=== PATIENT | male | born 1935 | race Caucasian/White ===

== ENCOUNTER 2021-04-02 11:20 | Outpatient (REF) | payer MEDICARE, SELFPAY ==
--- NOTE | ~2021-04-02 | US_ITS ---
EXAMINATION: US EXTRACRANIAL CAROTID DUPLEX, BILATERAL CLINICAL INFORMATION: Bilateral carotid artery stenosis. COMPARISON: 03/24/2020, 02/24/2019 TECHNIQUE: Real-time ultrasound and Doppler techniques (integrating B-mode 2-D vascular images, Doppler spectral analysis and color-flow Doppler imaging) were utilized to interrogate the extracranial carotid arteries, the vertebral arteries and proximal subclavian arteries bilaterally. The degree of stenosis is determined by criteria similar to NASCET. FINDINGS: Right Side: 1. There is mild atherosclerotic plaque seen in the bifurcation/proximal ICA region. 2. The common carotid artery PSV proximally is 118 cm/s and distally 78 cm/s. 3. The proximal internal carotid artery velocities are 84 cm/s systolic and 24 cm/s diastolic. 4. The proximal external carotid artery PSV is 90 cm/s. 5. The vertebral artery shows antegrade flow. 6. The subclavian artery waveforms are normal. Left Side: 1. There is moderate to severe atherosclerotic plaque seen in the bifurcation/proximal ICA region. 2. The common carotid artery PSV proximally is 109 cm/s and distally 84 cm/s. 3. The proximal internal carotid artery velocities are 201 cm/s systolic and 34 cm/s diastolic. 4. The proximal external carotid artery PSV is 123 cm/s. 5. The vertebral artery shows antegrade flow. 6. The subclavian artery waveforms are normal. US/US carotid duplex BI IMPRESSION: 1. RIGHT: Minimal, non-hemodynamically significant stenosis of the proximal right internal carotid artery corresponding to a 0-49% stenosis by velocity criteria. 2. LEFT: Moderate, hemodynamically significant stenosis of the proximal left internal carotid artery corresponding to a 50-79% stenosis by velocity criteria. 3. There is no change in the category severity of disease when compared to the previous study dated 03/24/2020.
== END 2021-04-02 11:21 | disposition home or self-care (01) ==
LOC: HO.US 11:20
PROVIDERS: Visit Provider Surgery Vascular Surgery
DX: I65.23 Occlusion and stenosis of bilateral carotid arteries (principal)
CPT/HCPCS: 93880

== ENCOUNTER → 2021-05-14 14:40 | Outpatient (BNVA) | payer MEDICARE, SELFPAY | PROVIDERS: PCP Family Medicine; Visit Provider Surgery Vascular Surgery | DX: I65.23 Occlusion and stenosis of bilateral carotid arteries (principal) | CPT/HCPCS: 99212 ==

== ENCOUNTER 2022-06-08 11:09 | Outpatient (REF) | payer MEDICARE, SELFPAY ==
--- NOTE | ~2022-06-08 | US_ITS ---
EXAMINATION: US EXTRACRANIAL CAROTID DUPLEX, BILATERAL CLINICAL INFORMATION: This is an 86-year-old male with occlusion and stenosis of bilateral carotid arteries. Status post right carotid in her rectum he. COMPARISON: Comparison is made to the previous study dated 04/02/2021 which demonstrated 0-49% right internal carotid artery stenosis and 50-79% left internal carotid artery stenosis. TECHNIQUE: Real-time ultrasound and Doppler techniques (integrating B-mode 2-D vascular images, Doppler spectral analysis and color-flow Doppler imaging) were utilized to interrogate the extracranial carotid arteries, the vertebral arteries and proximal subclavian arteries bilaterally. The degree of stenosis is determined by criteria similar to NASCET. FINDINGS: Right Side: 1. There is mild atherosclerotic plaque seen in the bifurcation/proximal ICA region. 2. The common carotid artery PSV proximally is 97 cm/s and distally 79 cm/s. 3. The proximal internal carotid artery velocities are 77 cm/s systolic and 22 cm/s diastolic. 4. The proximal external carotid artery PSV is 85 cm/s. 5. The vertebral artery shows antegrade flow. 6. The subclavian artery waveforms are normal. Left Side: 1. There is mild atherosclerotic plaque seen in the bifurcation/proximal ICA region. 2. The common carotid artery PSV proximally is 98 cm/s and distally 72 cm/s. 3. The proximal internal carotid artery velocities are 196 cm/s systolic and 43 cm/s diastolic. 4. The proximal external carotid artery PSV is 125 cm/s. 5. The vertebral artery shows antegrade flow. 6. The subclavian artery waveforms are normal. US/US carotid duplex BI IMPRESSION: 1. RIGHT: Minimal, non-hemodynamically significant stenosis of the proximal right internal carotid artery corresponding to a 0-49% stenosis by velocity criteria. 2. LEFT: Moderate, hemodynamically significant stenosis of the proximal left internal carotid artery corresponding to a 50-79% stenosis by velocity criteria. 3. There is no change in the category severity of disease when compared to the previous study dated 04/02/2021.
== END 2022-06-08 11:10 | disposition home or self-care (01) ==
LOC: HO.US 11:09
PROVIDERS: Visit Provider Surgery Vascular Surgery
DX: I65.23 Occlusion and stenosis of bilateral carotid arteries (principal)
CPT/HCPCS: 93880

== ENCOUNTER → 2022-06-21 08:49 | Outpatient (BNVA) | payer MEDICARE, SELFPAY | PROVIDERS: PCP Internal Medicine; Visit Provider Surgery Vascular Surgery | DX: I65.23 Occlusion and stenosis of bilateral carotid arteries (principal) | CPT/HCPCS: 99212 ==

== ENCOUNTER 2023-06-06 10:14 | Outpatient (REF) | payer MEDICARE, SELFPAY ==
--- NOTE | ~2023-06-06 | US_ITS ---
EXAMINATION: US EXTRACRANIAL CAROTID DUPLEX, BILATERAL CLINICAL INFORMATION: Carotid stenosis. History of right endarterectomy. COMPARISON: Yearly prior carotid ultrasounds most recently 06/08/2022. TECHNIQUE: Real-time ultrasound and Doppler techniques (integrating B-mode 2-D vascular images, Doppler spectral analysis and color-flow Doppler imaging) were utilized to interrogate the extracranial carotid arteries, the vertebral arteries and proximal subclavian arteries bilaterally. The degree of stenosis is determined by criteria similar to NASCET. FINDINGS: RIGHT SIDE: 1. There is mild atherosclerotic plaque seen in the bifurcation/proximal ICA region. 2. The common carotid artery PSV proximally is 112 cm/s and distally 107 cm/s. 3. The proximal internal carotid artery velocities are 57 cm/s systolic and 14 cm/s diastolic. 4. The proximal external carotid artery PSV is 154 cm/s. 5. The vertebral artery shows antegrade flow. 6. The subclavian artery waveforms are normal. LEFT SIDE: 1. There is mild atherosclerotic plaque seen in the bifurcation/proximal ICA region. 2. The common carotid artery PSV proximally is 100 cm/s and distally 79 cm/s. 3. The proximal internal carotid artery velocities are 149 cm/s systolic and 25 cm/s diastolic. 4. The proximal external carotid artery PSV is 118 cm/s. 5. The vertebral artery shows 79 flow. 6. The subclavian artery waveforms are 152. US/US carotid duplex BI IMPRESSION: 1. RIGHT: Minimal, nonhemodynamically significant stenosis of the proximal right internal carotid artery corresponding to a 0-49% stenosis by velocity criteria. 2. LEFT: A significant stenosis of the proximal left internal carotid artery corresponding to a 50-79% stenosis by velocity criteria. 3. Compared to the prior study, there has been no significant interval change in the category of disease severity.
== END 2023-06-06 10:15 | disposition home or self-care (01) ==
LOC: HO.US 10:14
PROVIDERS: PCP Internal Medicine; Visit Provider Surgery Vascular Surgery
DX: I65.23 Occlusion and stenosis of bilateral carotid arteries (principal)
CPT/HCPCS: 93880

== ENCOUNTER 2023-06-16 09:47 | Outpatient (AMB) | payer MEDICARE, SELFPAY ==
[2023-06-16 09:48] VITALS: BP 104/60; BMI 25.1
--- NOTE | 2023-06-16 09:48 | MHC.OFFVIS ---
Intake Vital Signs 06/16/23 09:48 06/16/23 09:57 Height 5 ft 10 in Weight 175 lb BMI 25.1 BP 104/60 104/60 Blood Pressure Location Lt brachial Rt brachial Position Sitting Sitting Intake Visit Reasons: 1 yr follow up carotid US 06/06/2023 Intake Note: 1 year follow up Carotid US 06/06/2023 w/ Hx of Right CEA 06/14/2017 ( at [facility]). Pt states no blurred vision or dizziness. No complaints. Chief Projectionist Required: Yes Chief Projectionist Language: Guyanese Chief Projectionist Name: Sherif () Information Interpreted: clinical only Accompanied by: Spouse Allergies No Known Allergies Allergy (Verified 06/16/23 09:55) HPI 1 yr follow up carotid US 06/06/2023 HPI Details Very pleasant 87-year-old gentleman presents for routine surveillance follow-up regarding his carotids. He had undergone right carotid endarterectomy nearly 6 years prior. He has been undergoing routine surveillance follow-up. He does remain somewhat active and does garden outside during the summertime. During the winter he has become a little bit more sedentary. In terms of his carotids he is asymptomatic. He now presents for routine surveillance follow-up with ultrasound. Of note he is being maintained on a statin. [facility] Medical History Hypercholesteremia HTN (hypertension) Surgical History History of CEA (carotid endarterectomy) Social History Patient Tobacco Use Status: Never used Tobacco Review of Systems Const All systems reviewed & are unremarkable except as noted in HPI and below Reports no additional complaints ENT Reports Normal hearing present Card Denies chest pain, Denies chest pain at rest, Denies chest pain with activity and Denies pedal edema Resp Denies cough GI Denies abdominal pain Musc Denies abnormal gait, Denies muscle cramps and Denies radiating pain into limb Skin/Breast Denies skin ulcer and Denies wounds Neuro Reports Normal hearing present and Denies abnormal gait Psych Reports no additional complaints Physical Exam Vital Signs: Last Vital Signs BP 104/60 06/16/23 09:57 BMI result Body Mass Index 25.1 Const General: cooperative, healthy appearing and comfortable Orientation/consciousness: oriented to person, oriented to place and oriented to time HEENT Head: Yes normal to inspection Neck Neck: Yes normal visual inspection Carotids: no bruits Chest Chest palpation & inspection: normal inspection of the chest Resp Effort & Inspection: normal respiratory effort and able to speak in complete sentences Auscultation: clear to auscultation bilaterally, no crackles, no rales, no rhonchi and no wheezes Cardio Rate: regular rate Rhythm: regular rhythm Heart sounds: S1 normal heart sound present and S2 normal heart sound present Bruits: no carotid bruits Peripheral pulses: Peripheral pulses 2+ throughout GI Inspection: Yes normal to inspection Skin Wounds: no wounds Hair: normal Neuro General: oriented to person, oriented to place and oriented to time Cranial nerves: Yes CN's II-XII intact bilaterally and Yes Normal hearing present Cognition (Neuro): normal cognition Motor exam (neuro): 5/5 motor strength present throughout Extrem Other: venous exam: No significant superficial varicosities or spider telangiectasias, minimal edema General: No clubbing, No cyanosis and No edema Psych Appearance: grossly normal Mental Status: mental status grossly normal Speech and movement: Normal speech and movement present Results Reviewed Results Reviewed: Carotid ultrasound dated 06/06/2023 demonstrates right-sided 0-49% left side 50-79% with a peak systolic velocity of only 149. There has been no significant change since the prior year. Written report and images were reviewed. Assessment & Plan Assessment & Plan (1) Bilateral carotid artery stenosis: Comment: 06/14/2017 - right carotid endarterectomy Code(s): I65.23 - Occlusion and stenosis of bilateral carotid arteries Plan: In short patient has asymptomatic carotid disease. We have reviewed signs and symptoms of a stroke. We also discussed risk factor modification inclusive a healthy diet low in cholesterol. The patient will follow up with us with surveillance ultrasound of the carotids 1 year. Should there be any changes or signs or symptoms of a stroke we will be happy to see them back sooner. Thank you for allowing us to participate in this patient's care. If there are any questions or concerns please do not hesitate to contact us. Orders: Orders US carotid duplex BI 364 Days I65.23 - Occlusion and stenosis of bilateral carotid arteries Coding Level of Care Code Est Pt Level 4 (14598) Diagnoses Bilateral carotid artery stenosis I65.23
[2023-06-16 09:57] VITALS: BP 104/60
== END 2023-06-16 10:16 | disposition home or self-care (01) ==
PROVIDERS: PCP Internal Medicine; Visit Provider Surgery Vascular Surgery
DX: I65.23 Occlusion and stenosis of bilateral carotid arteries (principal)
CPT/HCPCS: 99213

== ENCOUNTER → 2023-06-16 09:47 | Outpatient (BNVA) | payer MEDICARE, SELFPAY | PROVIDERS: PCP Internal Medicine; Visit Provider Surgery Vascular Surgery | DX: I65.23 Occlusion and stenosis of bilateral carotid arteries (principal) | CPT/HCPCS: 99212 ==

== ENCOUNTER 2024-06-14 09:45 | Outpatient (REF) | payer MEDICARE, SELFPAY ==
--- NOTE | ~2024-06-14 | US_ITS ---
EXAMINATION: US EXTRACRANIAL CAROTID DUPLEX, BILATERAL CLINICAL INFORMATION: Carotid stenosis, history of right carotid endarterectomy COMPARISON: 06/06/2023 TECHNIQUE: Real-time ultrasound and Doppler techniques (integrating B-mode 2-D vascular images, Doppler spectral analysis and color-flow Doppler imaging) were utilized to interrogate the extracranial carotid arteries, the vertebral arteries and proximal subclavian arteries bilaterally. The degree of stenosis is determined by criteria similar to NASCET. FINDINGS: Right Side: 1. Postsurgical changes consistent with carotid endarterectomy. There is no significant atherosclerotic plaque seen in the bifurcation/proximal ICA region. 2. The common carotid artery PSV proximally is 109 cm/s and distally 71 cm/s. 3. The proximal internal carotid artery velocities are 54.2 cm/s systolic and 10.8 cm/s diastolic. 4. The proximal external carotid artery PSV is 86 cm/s. 5. The vertebral artery shows antegrade flow. 6. The subclavian artery waveforms are normal. Left Side: Technically difficult with limited examination due to high bifurcation in the neck/submandibular region 1. Large amount of atheromatous plaque is seen in the distal common carotid artery and carotid bulb. Only a single vessel is is seen distal to this point suggesting underlying occlusion of either the internal carotid or external carotid artery. The degree of atheromatous plaque and occlusion of one of the vessels appears new compared to 2022. Velocity within the solitary vessel measures 123 cm/s 2. The vertebral artery shows antegrade flow. 6. The subclavian artery waveforms are normal. US/US carotid duplex BI IMPRESSION: 1. RIGHT: Status post carotid endarterectomy. No significant plaque/stenosis 2. LEFT: Extremely limited evaluation as described above. Large amount of atheromatous plaque now seen in the distal common carotid artery and carotid bulb with possible occlusion of either the extracranial carotid or internal carotid artery. This is new compared to the prior exam. Further evaluation with a CTA or MRA is recommended Electronically signed by: Donavan Esquivel MD 07/11/2024 02:21 PM [facility]
== END 2024-06-14 09:46 | disposition home or self-care (01) ==
LOC: HO.US 09:45
PROVIDERS: PCP Internal Medicine; Visit Provider Surgery Vascular Surgery
DX: I65.23 Occlusion and stenosis of bilateral carotid arteries (principal)
CPT/HCPCS: 93880

== ENCOUNTER 2024-06-21 09:56 | Outpatient (AMB) | payer MEDICARE, SELFPAY ==
--- NOTE | 2024-06-21 10:11 | MHC.OFFVIS ---
Intake Visit Reasons: 1 yr follow up carotid US 06/14/24 Intake Note: Patient presents for 1 year follow up carotid US performed on 06/14/24. No complaints. Allergies No Known Allergies Allergy (Verified 06/21/24 10:11) HPI HPI 1 yr follow up carotid US 06/14/24: Details: Very pleasant 88-year-old gentleman presents for routine surveillance regarding his carotids. He had undergone noninvasive testing. He remains somewhat active and does outside guarding during the summertime. He has become more sedentary. He had undergone right carotid endarterectomy with us nearly 7 years ago. He now presents for routine follow-up. [facility] Medical History Hypercholesteremia HTN (hypertension) Surgical History History of CEA (carotid endarterectomy) Social History Patient Tobacco Use Status: Never used Tobacco Review of Systems Const All systems reviewed & are unremarkable except as noted in HPI and below Reports no additional complaints ENT Reports Normal hearing present Card Denies chest pain, Denies chest pain at rest, Denies chest pain with activity and Denies pedal edema Resp Denies cough GI Denies abdominal pain Musc Denies abnormal gait, Denies muscle cramps and Denies radiating pain into limb Skin/Breast Denies skin ulcer and Denies wounds Neuro Reports Normal hearing present and Denies abnormal gait Psych Reports no additional complaints Physical Exam Const General: cooperative, healthy appearing and comfortable Orientation/consciousness: oriented to person, oriented to place and oriented to time HEENT Head: Yes normal to inspection Neck Neck: Yes normal visual inspection Carotids: no bruits Chest Chest palpation & inspection: normal inspection of the chest Resp Effort & Inspection: normal respiratory effort and able to speak in complete sentences Auscultation: clear to auscultation bilaterally, no crackles, no rales, no rhonchi and no wheezes Cardio Rate: regular rate Rhythm: regular rhythm Heart sounds: S1 normal heart sound present and S2 normal heart sound present Bruits: no carotid bruits Peripheral pulses: Peripheral pulses 2+ throughout GI Inspection: Yes normal to inspection Skin Wounds: no wounds Hair: normal Neuro General: oriented to person, oriented to place and oriented to time Cranial nerves: Yes CN's II-XII intact bilaterally and Yes Normal hearing present Cognition (Neuro): normal cognition Motor exam (neuro): 5/5 motor strength present throughout Extrem Other: venous exam: No significant superficial varicosities or spider telangiectasias, minimal edema General: No clubbing, No cyanosis and No edema Psych Appearance: grossly normal Mental Status: mental status grossly normal Speech and movement: Normal speech and movement present Results Reviewed Results Reviewed: On official reports demonstrate on the right side he has got 0-49% stenosis left side there was concern of high-grade stenosis at the distal common carotid artery. Was unable to get true velocity measurements in the internal carotid. Unfortunately I do not have an official read of this study done on 06/14/2024. Assessment & Plan Assessment & Plan (1) Bilateral carotid artery stenosis: Comment: 06/14/2017 - right carotid endarterectomy Code(s): I65.23 - Occlusion and stenosis of bilateral carotid arteries Category: Medical Plan: In short patient has stable right-sided carotid left side is in question. Unfortunately we do not have a clear study of this. I have taken the liberty of ordering a CT angiogram to better elucidate the true degree of stenosis. He will follow up with us after testing. Thank you for allowing us to assist in his care. If there are any questions or concerns please do not hesitate to contact us. Orders: Orders CT angio neck 1 Week I65.23 - Occlusion and stenosis of bilateral carotid arteries Blood Urea Nitrogen Today I65.23 - Occlusion and stenosis of bilateral carotid arteries Creatinine Today I65.23 - Occlusion and stenosis of bilateral carotid arteries Coding Level of Care Code Est Pt Level 4 (03659) Diagnoses Bilateral carotid artery stenosis I65.23
== END 2024-06-21 10:48 | disposition home or self-care (01) ==
PROVIDERS: PCP Internal Medicine; Visit Provider Surgery Vascular Surgery
DX: I65.23 Occlusion and stenosis of bilateral carotid arteries (principal)
CPT/HCPCS: 99214

== ENCOUNTER → 2024-06-21 09:56 | Outpatient (BNVA) | payer MEDICARE, SELFPAY | PROVIDERS: PCP Internal Medicine; Visit Provider Surgery Vascular Surgery | DX: I65.23 Occlusion and stenosis of bilateral carotid arteries (principal) | CPT/HCPCS: 99212 ==

== ENCOUNTER 2024-08-13 08:04 | Outpatient (REF) | payer MEDICARE, SELFPAY ==
--- NOTE | ~2024-08-13 | CT_ITS ---
CLINICAL HISTORY: I65.23 - Occlusion and stenosis of bilateral carotid arteries CT angiography neck with contrast. 3D Postprocessing. Comparison: CT/SR [place] [id number] - 01/16/18 08:25 EDT Findings: Three-vessel aortic arch and cervical great vessels are patent. There is calcified and noncalcified atheromatous plaquing at the left carotid bulb causing a 45% stenosis of the proximal left internal carotid artery. The right common and internal carotid artery are widely patent. Unremarkable bilateral ECA. Visualized intracranial arteries are patent. No aneurysm, dissection, or occlusion. Calcified atheromatous plaquing of the intracranial internal carotid arteries bilaterally without significant stenosis. The visualized thyroid gland is unremarkable. No cervical mass or fluid collection. Visualized intracranial structures demonstrate no acute findings. Intact orbits. Mild mucosal thickening in the bilateral maxillary sinus. Mastoid air cells are clear. Lung apices clear. No adenopathy. No acute fracture. Multilevel degenerative change of the cervical spine, predominantly uncovertebral and facet hypertrophy. No large disc osteophyte complex noted posteriorly. IMPRESSION: Calcified and noncalcified atheromatous plaquing causes 45 degree stenosis of the proximal left internal carotid artery per NASCET criteria. This appears increased compared with the prior study. This document has been electronically signed by: Keyla Castano MD on 08/14/2024 06:19:36
--- OUTSIDE RECORDS SUMMARY | 2024-08-13 08:08 | XMS_ITS | Clinical Summary ---
Author Organization [facility] Address [address] [place] [address] Phone Care Team Providers Care Vocational Rehabilitation Specialist Name Role Phone Frankie SWANN, Kirit Primary Care Provider [phone] [facility] [phone] Reason for Visit and Chief Complaint Medicare New Patient Plan of Treatment No Plan of Treatment Recorded Assessments Includes: Assessments from this encounter No Assessments Recorded Medical Equipment - Implanted Devices Includes: Current Devices No Medical Equipment Recorded Medications Administered Includes: Administered Medications from this encounter No Administered Medications Recorded Vital Signs Includes: Vital Signs from this encounter Vital Name 12/29/2023 09:27A Blood Pressure Sitting (mmHg) 192/85 Pulse Rate-Sitting (bpm) 80 Temp-Temporal 96.7 Height (in) 70 Weight (lb) 176 Body Mass Index 25.3 Body Surface Area 2 Oxygen Saturation (%) 96 Last Documented: On 12/29/2023 9:28AM ; [facility] Results Includes: Results discussed during this encounter No Results Recorded For Specified Dates History of Present Illness Includes: History of Present Illness from this encounter No History of Present Illness Recorded Social History No Social History Recorded - Smoking Status Unknown Medical History Includes: Medical History addressed during this encounter No Medical History Recorded Family History Includes: Family History addressed during this encounter No Family History Recorded Review of Systems Includes: Review of Systems from this encounter No Review of Systems Recorded Mental Status Includes: Mental Status from this encounter No Mental Status Recorded Functional Status Includes: Functional Status from this encounter No Functional Status Recorded Physical Exam Includes: Physical Exam from this encounter Encounters Encounter Provider Location Date Check-In Time Check-Out Time Diagnosis Medicare New Patient [facility] Lan [facility] 12/29/19 24 8:20AM 8:44AM Insurance Includes: Active Insurance Policies Plan Name Member ID Group # Subscriber Relationship Effect nuris Dates 1 - [facility] [id number] Ambrosio Townsend Self 2 - Medicare Part B [facility] [id number] Ambrosio Leung Clinical Notes Includes: Clinical Notes from this encounter * Progress note Date Encounter Last Documented by 12/29/2023 Medicare New Patient Last docume nted on 12/29/2023; 12:29 PM, Leon Lan MD; [facility], Chief Complaint Left great toe fracture laceration DOI: 12/27/2023 Nonoperative treatment HPI: 88-year-old male nondiabetic healthy active sustained above-stated injury to his left great toe with a sounds like a nailbed avulsion with a laceration. There is a fracture noted on the x-rays Patient evaluated [facility]. Underwent nailbed removal irrigation debridement suture laceration nailbed repair and application of Xeroform and a light dressing patient presents with daughter ambulating with a postop shoe Pain: Well-controlled Dressing removed Significant bleeding had been noted but seems to have ameliorated patient was on aspirin Local irrigation debridement was performed today dressing removed dressing cleaned No sign of infection Plan: Warm daily soaks Xeroform to nailbed Avoidance of any heavy impact activities Antibiotics: P.o. continue 7 to 10 days Follow-up postop day 10-14 for wound check Wound care discussed with daughter at length Radiographs reviewed at length.. We will be happy to see the patient back sooner rather than later if develops any signs of infection purulence drainage or cellulitis HILARIO Lan MD Physical Findings - Vitals taken 12/29/2023 09:27 am BP-Sitting 192/85 mmHg Pulse Rate-Sitting 80 bpm Temp-Temporal 96.7 F Height 70 in Weight 176 lbs Body Mass Index 25.3 kg/m2 Body Surface Area 2 m2 Oxygen Saturation 96 %
--- OUTSIDE RECORDS SUMMARY | 2024-08-13 08:08 | XMS_ITS ---
Care Plan - [facility] Created on: August 13, 2024 Ambrosio Townsend : 1935 Sex: Male Author Organization [facility] Address [address] [place] [phone] Phone Care Team Providers Care Machine Loader Name Role Phone Kirit David MD Primary Care Provider [phone] [facility] Unavailable [phone]
--- OUTSIDE RECORDS SUMMARY | 2024-08-13 08:08 | XMS_ITS | Clinical Summary ---
Author Organization [facility] Address [address] [place] [address] Phone Care Team Providers Care Funeral Director And Embalmer Name Role Phone Kirit David MD Primary Care Provider [phone] [facility] Unavailable [phone] Reason for Visit and Chief Complaint Established Patient Plan of Treatment Pending Tests Order Diagnosis Results Due Ordering P bolivar Follow Up - Appointment PRN Nondisp fx of dist phalanx of l great toe, init for opn fx 01/24/24 Jaleel Yadav PA-C Last Documented On 9:34AM ; [facility] [place] Assessments Includes: Assessments from this encounter No Assessments Recorded Medical Equipment - Implanted Devices Includes: Current Devices No Medical Equipment Recorded Medications Administered Includes: Administered Medications from this encounter No Administered Medications Recorded Vital Signs Includes: Vital Signs from this encounter Vital Name 01/24/2024 09:02A Blood Pressure Sitting (mmHg) 163/76 Pulse Rate-Sitting (bpm) 91 Temp-Temporal 97.1 Height (in) 70 Weight (lb) 170 Body Mass Index 24.4 Body Surface Area 1.9 Oxygen Saturation (%) 98 Last Documented: On 01/24/2024 9:03AM ; [facility] Results Includes: Results discussed during this encounter [...] Location Date Check-In Time Check-Out Time Diagnosis Established [facility]/24/[facility] 9:20AM 9:33AM Insurance Includes: Active Insurance Policies Plan Name Member ID Group # Subscriber Relationship Effect nuris Dates 1 - [facility] [id number] Ambrosio Leung 2 - Medicare Part B [facility] [id number] Ambrosio Leung Clinical Notes Includes: Clinical Notes from this encounter * Progress note Date Encounter Last Documented by 01/24/2024 Established Patient Last documekaiden colbert on 01/24/2024; 9:34 AM, Jaleel Yadav PA-C; [facility] Physical Findings - Vitals taken 01/24/2024 09:02 am BP-Sitting 163/76 mmHg Pulse Rate-Sitting 91 bpm Temp-Temporal 97.1 F Height 70 in Weight 170 lbs Body Mass Index 24.4 kg/m2 Body Surface Area 1.9 m2 Oxygen Saturation 98 % Plan StartCited - Nondisp fx of dist phalanx of l great toe, init for opn fx Follow Up/Appointment: PRN EndCited Notes REASON FOR VISIT Clinic follow-up for left great toe fracture and laceration DATE OF INJURY 12-27-23 DATE OF SURGERY N/A HISTORY OF PRESENT ILLNESS Patient is a pleasant 88-year-old male. On 12-27-23, patient sustained mechanical fall resulting in left great toe pain. Patient presented to [facility] ED. X-ray of the left foot demonstrated Widening of the interphalangeal joint of the great toe. Small bony fragments adjacent to the base of the distal phalanx. There is suggestion of a small fracture fragment at the lateral base of the distal phalanx. Overlying soft tissue irregularity and what appears to be an overlying soft tissue bandage. Patient's toenail was removed by ED staff and the laceration was closed. Patient was discharged with PO ABX. On 01-12-24, patient was seen most recently in the orthopedic clinic. At that time, he was instructed to continue with daily dressing changes with Xeroform and to continue with daily warm soaks with hydrogen peroxide. Patient was instructed to be weightbearing as tolerated with postop shoe. Today, patient states he is generally doing well. States that the pain in his left great toe has improved but is still sensitive where the nail is absent. Reports that he has been doing daily dressing changes and soaks as instructed. Denies numbness, paresthesias. Above information obtained from patient, patient's family if present, medical staff, and/or medical documentation. PHYSICAL EXAM General: Alert and cooperative, lying comfortably on exam, in no acute distress, accompanied by daughter Musculoskeletal: Left foot- great toe with medial laceration which appears to be healing well, scabbing appreciated over the area, toenail absent, no deformity/swelling/ecchymosis/erythema/drainage appreciated, area is nontender to light palpation, fires EHL/FHL, sensation intact about great toe, appears well-perfused IMAGING N/A ASSESSMENT Patient is 4 weeks s/p fall resulting in left great toe fracture and laceration. Patient is progressing well. PLAN - Weightbearing: As tolerated left lower extremity - Activity: As tolerated, being cautious of reinjury - Therapy: N/A - Dressing/DME: Patient may discontinue with hydrogen peroxide soaking and Xeroform dressing, may continue with dry/sterile dressing to provide padding to sensitive area of toe for comfort; patient may discontinue postop shoe and transition into supportive/comfortable shoe - Pain control: Elevate affected extremity; apply ice to affected area, 20 minutes on and 20 minutes off with a barrier between the ice and the skin; over the counter pain medication such as Tylenol or NSAID's as medically tolerated - Follow up: As needed - X-ray at follow up: N/A Patient seen with and above agreed to by Dr. Lan.
--- OUTSIDE RECORDS SUMMARY | 2024-08-13 08:08 | XMS_ITS | Clinical Summary ---
Author Organization [facility] Address [address] [place] [address] Phone Care Team Providers Care Snout Puller Name Role Phone Kirit David MD Primary Care Provider [phone] [facility] Unavailable [phone] Reason for Visit and Chief Complaint Established Patient Plan of Treatment Pending Tests Order Diagnosis Results Due Ordering P bolivar Follow Up - Appointment 2 Weeks Nondisp fx of dist phalanx of l great toe, init for opn fx 01/12/24 Yessi GEE Last Documented On 10:10AM ; [facility] Assessments Includes: Assessments from this encounter No Assessments Recorded Medical Equipment - Implanted Devices Includes: Current Devices No Medical Equipment Recorded Medications Administered Includes: Administered Medications from this encounter No Administered Medications Recorded Vital Signs Includes: Vital Signs from this encounter Vital Name 01/12/2024 09:36A Blood Pressure Sitting (mmHg) 142/69 Pulse Rate-Sitting (bpm) 70 Temp-Temporal 96.8 Height (in) 70 Weight (lb) 176 Body Mass Index 25.3 Body Surface Area 2 Oxygen Saturation (%) 96 Last Documented: On 01/12/2024 9:36AM ; [facility] Results Includes: Results discussed during this [...] Includes: Review of Systems from this encounter Chief complaint: Left great toe fracture laceration Date of injury: 12/27/2023 History of present illness: The patient is an 88-year-old Romanian speaking male who is being treated nonsurgically for an injury to his left great toe resulting in a nailbed avulsion with a laceration. Patient underwent nailbed removal, irrigation and debridement and suture laceration of the nailbed repair in the ER. He was last seen in the office on 12/02/2023 and at that visit was instructed to perform daily warm soaks, avoid heavy impact activities and continue p.o. antibiotics. He is seen today for routine follow-up and accompanied by his daughter who was able to translate. Patient reports completing antibiotics approximately 1 week ago. He continues to do daily warm soaks with hydrogen peroxide and dressing with Xeroform. Patient's daughter does the dressing change daily and lives approximately 20 minutes from the patient. Patient continues to wear a postop shoe. He reports mild left great toe pain to the touch. No other complaints at this time. Physical exam: Postop shoe already removed. Left great toe nail removed. Sutures in place over the distal great toe including over the nailbed. No erythema, drainage or malodor. No signs of infection. Mild tenderness palpation over the distal great toe. No pain with toe range of motion. Neurovascular intact. Diagnostic imaging: None obtained today Assessment: Patient is 2 weeks status post left great toe nailbed avulsion with a laceration. No signs of infection. Plan: Continue daily dressing changes with Xeroform. Continue daily warm soaks with hydrogen peroxide. Patient completed antibiotics approximately 1 week ago; no indication for antibiotics at this time. Weightbearing as tolerated left lower extremity in postop shoe. Rest, ice and elevate as needed. Follow-up in 2 weeks for wound check. No x-rays needed at that visit. Patient should call to be seen sooner if he develops signs of infection including but not limited to drainage, erythema, odor. Patient and his daughter understand and agree with the above-stated plan. Case discussed with Dr. Francis. Mental Status Includes: Mental Status from this encounter No Mental Status Recorded Functional Status Includes: Functional Status from this encounter No Functional Status Recorded Physical Exam Includes: Physical Exam from this encounter Encounters Encounter Provider Location Date Check-In Time Check-Out Time Diagnosis Established Patient Yessi CALVILLO [facility], 01/12/20 24 9:20AM 10:18AM Insurance Includes: Active Insurance Policies Plan Name Member ID Group # Subscriber Relationship Effect nuris Dates 1 - [facility] [id number] Ambrosio Leung 2 - Medicare Part B [facility] [id number] Ambrosio Leung Clinical Notes Includes: Clinical Notes from this encounter * Progress note Date Encounter Last Documented by 01/12/2024 Established Patient Last berlin colbert on 01/12/2024; 10:10 AM, Yessi GEE; [facility], Physical Findings - Vitals taken 01/12/2024 09:36 am BP-Sitting 142/69 mmHg Pulse Rate-Sitting 70 bpm Temp-Temporal 96.8 F Height 70 in Weight 176 lbs Body Mass Index 25.3 kg/m2 Body Surface Area 2 m2 Oxygen Saturation 96 % Plan StartCited - Nondisp fx of dist phalanx of l great toe, init for opn fx Follow Up/Appointment: 2 Weeks EndCited User Defined 4 Chief complaint: Left great toe fracture laceration Date of injury: 12/27/2023 History of present illness: The patient is an 88-year-old Romanian speaking male who is being treated nonsurgically for an injury to his left great toe resulting in a nailbed avulsion with a laceration. Patient underwent nailbed removal, irrigation and debridement and suture laceration of the nailbed repair in the ER. He was last seen in the office on 12/02/2023 and at that visit was instructed to perform daily warm soaks, avoid heavy impact activities and continue p.o. antibiotics. He is seen today for routine follow-up and accompanied by his daughter who was able to translate. Patient reports completing antibiotics approximately 1 week ago. He continues to do daily warm soaks with hydrogen peroxide and dressing with Xeroform. Patient's daughter does the dressing change daily and lives approximately 20 minutes from the patient. Patient continues to wear a postop shoe. He reports mild left great toe pain to the touch. No other complaints at this time. Physical exam: Postop shoe already removed. Left great toe nail removed. Sutures in place over the distal great toe including over the nailbed. No erythema, drainage or malodor. No signs of infection. Mild tenderness palpation over the distal great toe. No pain with toe range of motion. Neurovascular intact. Diagnostic imaging: None obtained today Assessment: Patient is 2 weeks status post left great toe nailbed avulsion with a laceration. No signs of infection. Plan: Continue daily dressing changes with Xeroform. Continue daily warm soaks with hydrogen peroxide. Patient completed antibiotics approximately 1 week ago; no indication for antibiotics at this time. Weightbearing as tolerated left lower extremity in postop shoe. Rest, ice and elevate as needed. Follow-up in 2 weeks for wound check. No x-rays needed at that visit. Patient should call to be seen sooner if he develops signs of infection including but not limited to drainage, erythema, odor. Patient and his daughter understand and agree with the above-stated plan. Case discussed with Dr. Francis.
[2024-08-13] MEDS: iohexoL 350 MG/ML 100 ML INFUS..BTL 70 ML IV (09:13)
[2024-08-14 07:52] LABS: Creatinine POC 1.1 mg/dL (0.5-1.4); GFR POC > 60
== END 2024-08-13 08:05 | disposition home or self-care (01) ==
LOC: HO.CT 08:04
PROVIDERS: PCP Internal Medicine; Visit Provider Surgery Vascular Surgery
DX: I65.23 Occlusion and stenosis of bilateral carotid arteries (principal)
CPT/HCPCS: 70498; 82565; Q9967

== ENCOUNTER → 2024-08-13 08:06 | Outpatient (BNV) | payer MEDICARE, SELFPAY | PROVIDERS: PCP Internal Medicine; Visit Provider Radiology Diagnostic Radiology | DX: I65.23 Occlusion and stenosis of bilateral carotid arteries (principal) | CPT/HCPCS: 70498 ==

== ENCOUNTER 2024-08-21 09:01 | Outpatient (AMB) | payer MEDICARE, SELFPAY ==
--- NOTE | 2024-08-21 09:05 | MHC.OFFVIS ---
Intake Visit Reasons: follow up s/p CT Scan 08/13/24 Intake Note: Patient presents for follow up CT Scan performed on 08/13/14. Accompanied by: Daughter Allergies No Known Allergies Allergy (Verified 08/21/24 09:05) [facility] HPI follow up s/p CT Scan 08/13/24: Details: Very pleasant 89-year-old gentleman presents for follow-up regarding carotid disease. He just turned 89 and I have known him for nearly 8 years after performing his right carotid endarterectomy. He appears to be doing relatively well. There was some concerning findings on his last ultrasound and he has undergone CT angiogram. He has had no interval issues in appears to be doing fairly well. He now presents for routine follow-up. [facility] Medical History Hypercholesteremia HTN (hypertension) Surgical History History of CEA (carotid endarterectomy) Social History Patient Tobacco Use Status: Never used Tobacco Review of Systems Const All systems reviewed & are unremarkable except as noted in HPI and below Reports no additional complaints ENT Reports Normal hearing present Card Denies chest pain, Denies chest pain at rest, Denies chest pain with activity and Denies pedal edema Resp Denies cough GI Denies abdominal pain Musc Denies abnormal gait, Denies muscle cramps and Denies radiating pain into limb Skin/Breast Denies skin ulcer and Denies wounds Neuro Reports Normal hearing present and Denies abnormal gait Psych Reports no additional complaints Physical Exam Const General: cooperative, healthy appearing and comfortable Orientation/consciousness: oriented to person, oriented to place and oriented to time HEENT Head: Yes normal to inspection Neck Neck: Yes normal visual inspection Carotids: no bruits Chest Chest palpation & inspection: normal inspection of the chest Resp Effort & Inspection: normal respiratory effort and able to speak in complete sentences Auscultation: clear to auscultation bilaterally, no crackles, no rales, no rhonchi and no wheezes Cardio Rate: regular rate Rhythm: regular rhythm Heart sounds: S1 normal heart sound present and S2 normal heart sound present Bruits: no carotid bruits Peripheral pulses: Peripheral pulses 2+ throughout GI Inspection: Yes normal to inspection Skin Wounds: no wounds Hair: normal Neuro General: oriented to person, oriented to place and oriented to time Cranial nerves: Yes CN's II-XII intact bilaterally and Yes Normal hearing present Cognition (Neuro): normal cognition Motor exam (neuro): 5/5 motor strength present throughout Extrem Other: venous exam: No significant superficial varicosities or spider telangiectasias, minimal edema General: No clubbing, No cyanosis and No edema Psych Appearance: grossly normal Mental Status: mental status grossly normal Speech and movement: Normal speech and movement present Results Reviewed Results Reviewed: CT angiogram dated 08/13/2024 demonstrates left carotid stenosis of 45%. Right carotid is clean. Assessment & Plan Assessment & Plan (1) Bilateral carotid artery stenosis: Comment: 06/14/2017 - right carotid endarterectomy Code(s): I65.23 - Occlusion and stenosis of bilateral carotid arteries Category: Medical Plan: In short patient has stable carotid disease. I had a very marilin discussion with the family at this point in his life with the amount of stenosis I do not think we would ever operate on him. He appears to be doing fairly well and spry for an 89-year-old gentleman. I do not think any further follow-up imaging or follow-up with me is required. He will be missed from our practice. I wish them the best and should our services be ever required in the future would be happy to take care of this very kind gentleman. Thank you for allowing us to assist in his care. If there are any questions or concerns please do not hesitate to contact us. Coding Level of Care Code Est Pt Level 4 (28275) Complex EM visit Add On G2211 Diagnoses Bilateral carotid artery stenosis I65.23
== END 2024-08-21 09:23 | disposition home or self-care (01) ==
PROVIDERS: PCP Internal Medicine; Visit Provider Surgery Vascular Surgery
DX: I65.23 Occlusion and stenosis of bilateral carotid arteries (principal)
CPT/HCPCS: 99214; G2211

== ENCOUNTER → 2024-08-21 09:01 | Outpatient (BNVA) | payer MEDICARE, SELFPAY | PROVIDERS: PCP Internal Medicine; Visit Provider Surgery Vascular Surgery | DX: I65.23 Occlusion and stenosis of bilateral carotid arteries (principal) | CPT/HCPCS: 99212 ==

== ENCOUNTER 2025-06-04 10:52 | Outpatient (AMB) | payer MEDICARE, SELFPAY ==
--- OUTSIDE RECORDS SUMMARY | 2025-05-31 08:00 | XMS_ITS | Encounter Summary ---
Author Organization [facility] Address [address] [place] [address] Care Team Providers Care Bevel Gear Generator Operator Name Role Phone Rodolfo Dumont MD Primary Care Provider [phone] Reason for Visit * Reason Comments Consult * Consultation (Routine) - Authorized Specialty Diagnoses / Procedures Referred By Contact Referred To Contact Oncology / Hematology and Oncology Diagnoses Vitamin B12 deficiency Rodolfo Dumont MD [address] [place] [address] Phone: tel: fax: Hayder Stephens MD [address] [place] [address] Phone: tel: fax: Referral ID Status Reason Start Date Expiration Date Visits Requested Visits Authorized [id number] Authorized Specialty Services Required 04/18/2025 04/18/2026 99 99 Encounter Details Date Type Department Care Team (Late st Contact Info) Description 05/31/2025 9:00 AM EDT Office Visit [facility] Hematology Oncology [address] [place] [phone] Hayder Stephens MD [address] [place] [address] B12 deficiency (Primary Dx); Anemia, unspecified type Social History Tobacco Use Types Packs/Day Years Used Date Smoking Tobacco: Never Smokeless Tobacco: Never Alcohol Use Standard Drinks/Week Comments Not Currently 0 (1 standard drink = 0.6 oz pur e alcohol) Sex and Gender Information Value Date Recorded Sex Assigned at Not on file Legal Sex Male 4:58 PM EST Gender Identity Not on file Sexual Orientation Not on file documented as of this encounter Last Filed Vital Signs Vital Sign Reading Time Taken Comments Blood Pressure 130/71 05/31/2025 8:56 AM EDT Pulse 72 05/31/2025 8:56 AM EDT Temperature 36.7 C (98 F) 05/31/2025 8:56 AM EDT Respiratory Rate - - Oxygen Saturation 98% 05/31/2025 8:56 AM EDT Inhaled Oxygen Concentration - - Weight 77.6 kg (171 lb) 05/31/2025 8:56 AM EDT Height 177.8 cm (5' 10 ) 05/31/2025 8:56 AM EDT Body Mass Index 24.54 05/31/2025 8:56 AM EDT documented in this encounter Progress Notes * Hayder Stephens MD - 05/31/2025 9:00 AM EDT Dear Rodolfo, Thank you very much for referring this patient for consultation. HPI: Patient is an 89-year-old Turkish speaking man (history and physical done with the help of interpretation), who has multiple medical problem, who found to have significantly low B12 level and mild to moderate normocytic anemia so patient referred to me for further hematological evaluation. Patient and his daughter denies any prior history of hematological issues or any significant family history of hematological disease ROS: GENERAL: No significant anorexia but some weight loss and moderate fatigue HEENT no headache no visual symptom NECK: No lumps, goiter, pain or significant neck swelling RESPIRATORY: No cough or shortness of breath CARDIOVASCULAR: No chest pain. GI: No significant abdominal discomfort, blood in stools or black stools MUSCULOSKELETAL: No new unusual aches and pain HEMATOLOGY/LYMPHOLOGY No prolonged bleeding, easy bruisability or swollen nodes Other Systems review is non contributory PAST MEDICAL HISTORY: Patient Active Problem List Diagnosis Date Noted Parkinson's disease without dyskinesia (CMS/HCC V24, CMS/HCC V28) 04/18/2025 Anemia 07/18/2024 Arteriosclerosis of carotid artery 07/18/2024 Enlarged prostate 07/18/2024 Hyperlipidemia 07/18/2024 Loss of hearing 07/18/2024 Primary hypertension 07/18/2024 Vitamin B12 deficiency (non anemic) 07/18/2024 Impaired glucose tolerance 11/10/2017 Stage III chronic kidney disease ([facility] V24, [facility] V28) 11/10/2017 Carotid atherosclerosis 07/04/2017 PAST SURGICAL HISTORY: Surgical History[1] SOCIAL HISTORY: Social History Tobacco Use Smoking status: Never Smokeless tobacco: Never Substance Use Topics Alcohol use: Not Currently FAMILY HISTORY: Family History[2] Family Status Relation Name Status Son Alive Brother Alive Brother Sister Alive Sister Father Mother Daughter Alive MGM MGF PGM PGF No partnership data on file MEDICATIONS: Current Medications[3] Current Allergies[4] PHYSICAL EXAM: Visit Vitals BP 130/71 (BP Location: Left arm, Patient Position: Sitting, BP Cuff Size: Adult) Pulse 72 Temp 36.7 ??C (98 ??F) (Temporal) Ht 1.778 m (70 ) Wt 77.6 kg (171 lb) SpO2 98% BMI 24.54 kg/m?? Smoking Status Never BSA 1.95 m?? ECOG 0-1 APPEARANCE: Alert and oriented in no acute distress EYES: nonicteric sclera pink conjunctiva ORAL CAVITY: No erythema or exudates NECK: Neck supple, no significant adenopathy, HEART: normal S1 and S2 LUNG: clear to auscultation bilaterally LYMPH NODES: No palpable superficial adenopathy ABDOMEN: soft, nontender and no organomegaly appreciated. EXTREMITIES: Trace edema of lower extremity LABS: Lab Results Component Value Date WBC 6.7 04/18/2025 HGB 11.1 (L) 04/18/2025 HCT 34.6 (L) 04/18/2025 MCV 84.8 04/18/2025 PLT 156 04/18/2025 B12 level only 169 BUN 28 and creatinine 1.47 ASSESSMENT 1. B12 deficiency 2. Anemia, unspecified type After reviewing history physical laboratory data, there is a possibility patient may have pernicious anemia but B12 malabsorption can be due to diet, medication etc. patient have normocytic anemia soI will rule out possibility of iron deficiency but his anemia can be also due to his renal insufficiency. I gave him reassurance, I told him I would like to review peripheral smear as well as check B12 level again because patient is taking B12 orally, I will also check methylmalonic acid, intrinsicfactor antibody as well as iron studies, I will see him back after his workup for any further intervention PLAN: Above labs today, return to office in 2 to 3 weeks for any further intervention Hayder Stephens MD cc: Rodolfo Dumont MD [1] Past Surgical History: Procedure Laterality Date CATARACT EXTRACTION PROCEDURE: HISTORICAL CATARACT REMOVAL OTHER SURGICAL HISTORY Right PROCEDURE: ---- OTHER ----; COMMENT: carotid endarterectomy [2] Family History Problem Relation Name Age of Onset Other (Other: Other) Son hx of seizures No Known Problems Brother step Diabetes Brother Other (Other: carotid atherosclerosis) Sister step Breast cancer Sister step Breast cancer Sister [3] Current Outpatient Medications: acetaminophen (TYLENOL 8 HOUR) 650 mg 8 hr tablet, Take 1 tablet (650 mg total) by mouth every 8 (eight) hours if needed for moderate pain., Disp: 90 tablet, Rfl: 0 aspirin 81 mg EC tablet, Take 1 tablet (81 mg total) by mouth 1 (one) time each day., Disp: , Rfl: cholecalciferol (VITAMIN D-3) 25 mcg (1,000 unit) capsule, Take 1 capsule (1,000 Units total) by mouth 1 (one) time each day., Disp: , Rfl: cyanocobalamin (Vitamin B-12) 1,000 mcg tablet, Take 1 tablet (1,000 mcg total) by mouth 1 (one) time each day., Disp: 30 each, Rfl: 11 metoprolol succinate (TOPROL-XL) 25 mg 24 hr tablet, TAKE 1 TABLET BY MOUTH 1 TIME EACH DAY., Disp:90 tablet, Rfl: 0 omega-3 acid ethyl esters (LOVAZA) 1 gram capsule, Take 1 capsule (1 g total) by mouth 1 (one) timeeach day., Disp: , Rfl: rosuvastatin (CRESTOR) 40 mg tablet, Take 1 tablet (40 mg total) by mouth 1 (one) time each day., Disp: 90 tablet, Rfl: 0 [4] No Known Allergies documented in this encounter Plan of Treatment Upcoming Encounters Date Type Department Care Team (Late st Contact Info) Description 06/18/2025 11:30 AM EST Office Visit [facility] Hematology Oncology [address] [place] [phone] Hayder Stephens MD [address] [place] [address] 10/17/2025 9:15 AM EDT Office Visit Internal Medicine - [facility] [address] [place] [phone] Rodolfo Dumont MD [address] [place] [address] 04/17/2026 1:00 PM EDT Office Visit Nephrology [facility] [address] [place] [address] Walter Bui MD [address] [phone] documented as of this encounter Results * Erythropoietin (05/31/2025 9:19 AM EDT) [facility] Erythropoietin 4.5 2.6 - 18.5 mIU/mL 06/03/2025 8:44 PM EST [facility] Comment: Test performed at [facility], [address] , [place] [address] Melanie Vargas MD, PhD - Head Machinist Blood Venous blood specimen / Unknown Venipuncture / Unknown 05/31/2025 9:19 AM EDT 05/31/2025 1:14 PM EDT us Hayder Stephens MD LAB BLOOD ORDERABLES Final R esult [facility] [address] [place] [address] * (ABNORMAL) Iron and TIBC (05/31/2025 9:19 AM EDT) [facility] Iron 34(L) 50 - 160 mcg/dL LAB CHEMISTRY METHOD 05/31/2025 2:45 PM EDT [facility] TIBC 274 250 - 450 mcg/dL LAB CHEMISTRY METHOD 05/31/2025 2:45 PM EDT [facility] Iron Saturation 12(L) 20 - 50 % LAB CHEMISTRY METHOD 05/31/2025 2:45 PM EDT [facility] Blood Venous blood specimen / Unknown Venipuncture / Unknown 05/31/2025 9:19 AM EDT 05/31/2025 1:14 PM EDT us Hayder Stephens MD LAB BLOOD ORDERABLES Final R esult Performing Organization Address City/[facility]/ZIP Co de Phone Number [facility] [address] [place] [address], [place] [phone] * Ferritin (05/31/2025 9:19 AM EDT) [facility] Ferritin 146 26 - 388 ng/mL LAB CHEMISTRY METHOD 05/31/2025 2:45 PM EDT [facility] Blood Venous blood specimen / Unknown Venipuncture / Unknown 05/31/2025 9:19 AM EDT 05/31/2025 1:14 PM EDT Hayder Stephens MD LAB BLOOD ORDERABLES Final R esult [facility] [address] [place] [address], [place] [phone] * Reticulocyte count (05/31/2025 9:19 AM EDT) Pathologist [facility] Retic Ct Abs 0.040 0.030 - 0.090 M/mcL LAB HEMETOLOGY METHOD 05/31/2025 1:41 PM EDT [facility] Retic Ct Pct 0.9 0.7 - 1.7 % LAB HEMETOLOGY METHOD 05/31/2025 1:41 PM EDT [facility] Immature Retic Fract 8.8 2.3 - 15.9 % LAB HEMETOLOGY METHOD 05/31/2025 1:41 PM EDT [facility] Reticulocyte Hemoglobin 30.9 >29.0 pcg LAB HEMETOLOGY METHOD 05/31/2025 1:41 PM EDT [facility] Blood Venous blood specimen / Unknown Venipuncture / Unknown 05/31/2025 9:19 AM EDT 05/31/2025 1:15 PM EDT Hayder Stephens MD LAB BLOOD ORDERABLES Final R esult Performing Organization Address City/[facility]/ZIP Co de Phone Number [facility] [address] [place] [address], [place] [phone] * Intrinsic factor blocking antibody (05/31/2025 9:19 AM EDT) Intrinsic Factor Blocking Antibody Negative Negative 06/03/2025 8:50 PM EST [facility] Comment: Positive in 50% of persons with pernicious anemia. Very high serum levels of vitamin B12 may give false positive results for intrinsic factor antibody. No sample should be collected from a patient who has received vitamin B12 injection therapy within the past week. Test performed at [facility], [address], [place] [address] Melanie Vargas MD, PhD - Head Machinist Blood Venous blood specimen / Unknown Venipuncture / Unknown 05/31/2025 9:19 AM EDT 05/31/2025 1:14 PM EDT us Hayder Stephens MD LAB BLOOD ORDERABLES Final R esult [facility] [address] [place] [address] * (ABNORMAL) Methylmalonic acid, serum (05/31/2025 9:19 AM EDT) Pathologist [facility] Methylmalonic Acid 0.41(H) <0.40 umol/L 06/04/2025 8:11 AM EST [facility] Comment: If applicable, any drug confirmation testing reported here was developed and the performance characteristics determined by [facility]. This confirmation testing has not been cleared or approved by the FDA. The laboratory is regulated under CLIA as qualified to perform high-complexity testing. This test is used for patient testing purposes. It should not be regarded as investigational or for research. Test performed at [facility], [address], [place] [address] Melanie Vargas MD, PhD - Head Machinist Blood Venous blood specimen / Unknown Venipuncture / Unknown 05/31/2025 9:19 AM EDT 05/31/2025 1:14 PM EDT Hayder Stephens MD LAB BLOOD ORDERABLES Final R esult [facility] [address] [place] [address] * (ABNORMAL) Vitamin B12 and folate (05/31/2025 9:19 AM EDT) Pathologist [facility] Vitamin B-12 500 250 - 900 pcg/mL LAB CHEMISTRY METHOD 05/31/2025 2:45 PM EDT [facility] Folate >20.0(H) 2.8 - 17.0 ng/ml LAB CHEMISTRY METHOD 05/31/2025 2:45 PM EDT [facility] Blood Venous blood specimen / Unknown Venipuncture / Unknown 05/31/2025 9:19 AM EDT 05/31/2025 1:14 PM EDT us Hayder Stephens MD LAB BLOOD ORDERABLES Final R esult [facility] [address] [place] [address], [place] [phone] documented in this encounter Visit Diagnoses Diagnosis B12 deficiency- Primary Anemia, unspecified type documented in this encounter Orders Outpatient Referral Count Last Ordered Date Fir st Ordered Date AMB REFERRAL TO HEMATOLOGY 1 05/31/2025 documented in this encounter Care Teams Bevel Gear Generator Operator Relationship Specialty Start Date End Date Rodolfo Dumont MD [address] [place] [id number] PCP - General Internal Medicine 06/26/19 documented as of this encounter
--- OUTSIDE RECORDS SUMMARY | 2025-05-31 08:30 | XMS_ITS | Encounter Summary ---
Author Organization [facility] Address [address] [place] [address] Care Team Providers Care Activity Leader Name Role Phone Rodolfo Dumont MD Primary Care Provider [phone] Encounter Details Date Type Department Care Team (Late Contact Info) Description 05/31/2025 9:30 AM EDT Lab Draw Station - [address] [phone] B12 deficiency; Anemia, unspecified type Social History Tobacco Use [...] on file documented as of this encounter Plan of Treatment Upcoming Encounters Date Type Department Care Team (Late st Contact Info) Description 06/18/2025 11:30 AM EST Office Visit [facility] Hematology Oncology [address] [place] [phone] Hayder Stephens MD [address] [place] [address] 10/17/2025 9:15 AM EDT Office Visit Internal Medicine - [address] [phone] Rodolfo Dumont MD [address] [place] [address] 04/17/2026 1:00 PM EDT Office Visit Nephrology - [place] [address] [place] [phone] Walter Bui MD [address] [phone] documented as of this encounter Procedures Procedure Name Priority Date/Time Associated Diagnosis Comments VITAMIN B12 AND FOLATE Routine 9:19 AM EDT B12 deficiency Anemia, unspecified type CBC WITH AUTO DIFFERENTIAL Routine 05/31/2025 9:19 AM EDT B12 deficiency Anemia, unspecified type ERYTHROPOIETIN Routine 05/31/2025 9:19 AM EDT B12 deficiency Anemia, unspecified type INTRINSIC FACTOR BLOCKING ANTIBODY Routine 05/31/2025 9:19 AM EDT B12 deficiency Anemia, unspecified type METHYLMALONIC ACID, SERUM Routine 05/31/2025 9:19 AM EDT B12 deficiency Anemia, unspecified type IRON AND TIBC Routine 05/31/2025 9:19 AM EDT B12 deficiency Anemia, unspecified type RETICULOCYTE COUNT Routine 05/31/2025 9: 19 AM EDT B12 deficiency Anemia, unspecified type CBC AND DIFFERENTIAL Routine 05/31/2025 9:19 AM EDT B12 deficiency Anemia, unspecified type FERRITIN Routine 05/31/2025 9:19 AM EDT B12 deficiency Anemia, unspecified type documented in this encounter Results * (ABNORMAL) CBC auto differential (05/31/2025 9:19 AM EDT) WBC 6.2 4.8 - 10.8 K/mcL LAB HEMETOLOGY METHOD 05/31/2025 1:[address] [facility] RBC 4.10(L) 4.50 - 5.50 M/mcL LAB HEMETOLOGY METHOD 05/31/2025 1:[address] [facility] Hemoglobin 11.1(L) 13.5 - 17.5 g/dL LAB HEMETOLOGY METHOD 05/31/2025 1:[address] [facility] Hematocrit 35.4(L) 42.0 - 54.0 % LAB HEMETOLOGY METHOD 05/31/2025 1:[address] [facility] MCV 87.4 79.0 - 98.0 FL LAB HEMETOLOGY METHOD 05/31/2025 1:[address] [facility] MCH 27.4 27.0 - 32.0 pcg LAB HEMETOLOGY METHOD 05/31/2025 1:[address] [facility] MCHC 31.4(L) 32.0 - 37.0 g/dL LAB HEMETOLOGY METHOD 05/31/2025 1:[address] [facility] RDW 15.2(H) 11.0 - 15.0 % LAB HEMETOLOGY METHOD 05/31/2025 1:[address] [facility] Platelets 130 130 - 400 K/mcL LAB HEMETOLOGY METHOD 05/31/2025 1:[address] [facility] MPV 10.5 7.0 - 11.0 FL LAB HEMETOLOGY METHOD 05/31/2025 1:[address] [facility] NRBC 0.0 <1.0 % LAB HEMETOLOGY METHOD 05/31/2025 1:[address] [facility] NRBC Absolute 0.00 <0.10 K/mcL LAB HEMETOLOGY METHOD 05/31/2025 1:[address] [facility] Neutrophils Relative 50.5 % LAB HEMETOLOGY METHOD 05/31/2025 1:[address] [facility] Lymphocytes Relative 30.9 % LAB HEMETOLOGY METHOD 05/31/2025 1:[address] [facility] Monocytes Relative 15.8 % LAB HEMETOLOGY METHOD 05/31/2025 1:[address] [facility] Eosinophils Relative 2.4 % LAB HEMETOLOGY METHOD 05/31/2025 1:[address] [facility] Basophils Relative 0.2 % LAB HEMETOLOGY METHOD 05/31/2025 1:[address] [facility] Immature Granulocytes Relative 0.2 % LAB HEMETOLOGY METHOD 05/31/2025 1:[address] [facility] Neutrophils Absolute 3.11 1.50 - 7.00 K/mcL LAB HEMETOLOGY METHOD 05/31/2025 1:[address] [facility] Lymphocytes Absolute 1.90 1.00 - 5.00 K/mcL LAB HEMETOLOGY METHOD 05/31/2025 1:[address] [facility] Monocytes Absolute 0.97 0.20 - 1.00 K/mcL LAB HEMETOLOGY METHOD 05/31/2025 1:[address] [facility] Eosinophils Absolute 0.15 0.00 - 0.50 K/mcL LAB HEMETOLOGY METHOD 05/31/2025 1:[address] [facility] Basophils Absolute 0.01 0.00 - 0.20 K/mcL LAB HEMETOLOGY METHOD 05/31/2025 1:[address] [facility] Immature Granulocytes Absolute 0.01 0.00 - 0.03 K/mcL LAB HEMETOLOGY METHOD 05/31/2025 1:[address] [facility] Blood Venous blood specimen / Unknown Venipuncture / Unknown 05/31/2025 9:19 AM EDT 05/31/2025 1:15 PM EDT Hayder Stephens MD LAB BLOOD ORDERABLES Final R esult [facility] [address] [place] [address], [place] [phone] * Erythropoietin (05/31/2025 9:19 AM EDT) Erythropoietin 4.5 2.6 - 18.5 mIU/mL 06/03/2025 8:44 PM EST [facility] Comment: Test performed at [facility], [address], [place] [address] Melanie Vargas MD, PhD - Hogshead Stock Clerk Blood Venous blood specimen / Unknown Venipuncture / Unknown 05/31/2025 9:19 AM EDT 05/31/2025 1:14 PM EDT Hayder Stephens MD LAB BLOOD ORDERABLES Final R esult [facility] [address] [place] [address] * (ABNORMAL) Iron and TIBC (05/31/2025 9:19 AM EDT) Iron 34(L) 50 - 160 mcg/dL LAB CHEMISTRY METHOD 05/31/2025 2:45 PM EDT [facility] TIBC 274 250 - 450 mcg/dL LAB CHEMISTRY METHOD 05/31/2025 2:45 PM EDT [facility] Iron Saturation 12(L) 20 - 50 % LAB CHEMISTRY METHOD 05/31/2025 2:45 PM EDT [facility] Blood Venous blood specimen / Unknown Venipuncture / Unknown 05/31/2025 9:19 AM EDT 05/31/2025 1:14 PM EDT us Hayder Stephens MD LAB BLOOD ORDERABLES Final R esult [facility] [address] [place] [address], [place] [phone] * Ferritin (05/31/2025 9:19 AM EDT) Ferritin 146 26 - 388 ng/mL LAB CHEMISTRY METHOD 05/31/2025 2:45 PM EDT [facility] Blood Venous blood specimen / Unknown Venipuncture / Unknown 05/31/2025 9:19 AM EDT 05/31/2025 1:14 PM EDT Hayder Stephens MD LAB BLOOD ORDERABLES Final R esult Performing Organization Address City/[facility]/ZIP Co de Phone Number [facility] [address] [place] [address], [place] [phone] * Reticulocyte count (05/31/2025 9:19 AM EDT) Retic Ct Abs 0.040 0.030 - 0.090 M/mcL LAB HEMETOLOGY METHOD 05/31/2025 1:41 PM EDT [facility] Retic Ct Pct 0.9 0.7 - 1.7 % LAB HEMETOLOGY METHOD 05/31/2025 1:41 PM EDT [facility] Immature Retic Fract 8.8 2.3 - 15.9 % LAB HEMETOLOGY METHOD 05/31/2025 1:41 PM EDT [facility] Reticulocyte Hemoglobin 30.9 >29.0 pcg LAB HEMETOLOGY METHOD 05/31/2025 1:41 PM EDT [facility] Blood Venous blood specimen / Unknown Venipuncture / Unknown 05/31/2025 9:19 AM EDT 05/31/2025 1:15 PM EDT Hayder Stephens MD LAB BLOOD ORDERABLES Final R esult [facility] [address] [place] [address], * Intrinsic factor blocking antibody (05/31/2025 9:19 [...] within the past week. Test performed at [facility], [address] [address], [place] [address] Melanie Vargas MD, PhD - Hogshead Stock Clerk Blood Venous blood specimen / Unknown Venipuncture / Unknown 05/31/2025 9:19 AM EDT 05/31/2025 1:14 PM EDT Hayder Stephens MD LAB BLOOD ORDERABLES Final R esult [facility] [address] [place] [address] * (ABNORMAL) Methylmalonic acid, serum (05/31/2025 9:19 AM EDT) Methylmalonic Acid 0.41(H) <0.40 umol/L 06/04/2025 8:11 AM EST [facility] Comment: If applicable, any drug confirmation testing reported here was developed and the performance characteristics determined by [facility]. This confirmation testing has not been cleared or approved by the FDA. The laboratory is regulated under CLIA as qualified to perform high-complexity testing. This test is used for patient testing purposes. It should not be regarded as investigational or for research. Test performed at [facility], [address], [place] [address] Melanie Vargas MD, PhD - Hogshead Stock Clerk Blood Venous blood specimen / Unknown Venipuncture / Unknown 05/31/2025 9:19 AM EDT 05/31/2025 1:14 PM EDT Hayder Stephens MD LAB BLOOD ORDERABLES Final R esult [facility] [address] [place] [address] * (ABNORMAL) Vitamin B12 and folate (05/31/2025 9:19 AM EDT) Pathologist [facility] Vitamin B-12 500 250 - 900 pcg/mL LAB CHEMISTRY METHOD 05/31/2025 2:45 PM EDT [facility] Folate >20.0(H) 2.8 - 17.0 ng/ml LAB CHEMISTRY METHOD 05/31/2025 2:45 PM EDT [facility] Blood Venous blood specimen / Unknown Venipuncture / Unknown 05/31/2025 9:19 AM EDT 05/31/2025 1:14 PM EDT Hayder Stephens MD LAB BLOOD ORDERABLES Final R esult [facility] [address] [place] [address], documented in this encounter Visit Diagnoses Diagnosis B12 deficiency Anemia, unspecified type documented in this encounter Care Teams Activity Leader Relationship Specialty Start Date End Date Rodolfo Dumont MD [address] [place] [id number] PCP - General Internal Medicine 06/26/19 documented as of this encounter
--- NOTE | 2025-06-04 10:54 | A.OFFVIS_ITS ---
Intake Visit Reasons: 6 months f/u Allergies No Known Allergies Allergy (Verified 08/21/24 09:05) HPI Comments Details: This is a 89-year-old [place] speaking man who is here with his daughter,?a nurse, who?acted as an yard driver.? He himself feels fine and doesn't think that he has any problem with his mobility.? He acknowledges slight intermittent tremor in his right hand which does not cause any functional impairment.? Other than that, he feels he has no problems getting dressed, eating, walking or with his memory.? His daughter reports that the family has noted?very mild intermittent resting tremor in the right hand, mostly involving the thumb, index finger and the wrist??since April of 2024.? It was also noted that he doesn't swing his arms as well when?he walks. At home,? he shuffles a bit in his walking, but when he comes to the doctor's office he makes a conscious effort to overcome it.? He has become somewhat slower in doing things. His facial expression is blank at times. ?He's had no falls.? He has no significant memory impairment other than what would be expected for his age.? He takes a couple of attempts to get out of a?chair.? He has no trouble turning in bed.? No drooling or dysphagia.? His speech has not changed.? He had a few physical therapy evaluations and was given exercises which he does not do. ?Most of the day he is sitting in his chair and does not like to go for a walk. [facility] Medical History (Updated 06/04/25 @ 11:22 by Dwayne Hogan MD) Parkinson disease Hypercholesteremia HTN (hypertension) Surgical History History of CEA (carotid endarterectomy) Social History Patient Tobacco Use Status: Never used Tobacco Review of Systems Const Details: ?Sleep:? Difficulty getting to sleepdenies.? Difficulty maintaining sleepdenies?.? Urge to move legsdenies.? Teeth grindingadmits.? Shouting or Kicking during sleep denies.? Abnormal behavior during sleepdenies.? Excessive sleepdenies.? Snoring admits.? Daytime sleepinessdenies. ???General/Constitutional:? Change in appetitedenies.? Chillsdenies.? Fatiguedenies.? Feverdenies.? Weight gaindenies.? Weight lossdenies. ???Ophthalmologic:? Blurred visiondenies.? Diminished visual acuitydenies. ???ENT:? Stuffinessdenies.? Decreased hearingdenies.? Dry mouthdenies.? Ear paindenies.? Nosebleeddenies.? Ringing in the earsdenies.? Sinus paindenies.? Sore throat denies.? Swollen glandsdenies. ???Endocrine:? Cold intolerancedenies.? Excessive thirstdenies.? Frequent urinationdenies.? Heat intolerancedenies. ???Respiratory:? Shortness of breathdenies.? Chest paindenies.? Coughdenies. ???Breast:? Breast lumpdenies.? Nipple dischargedenies. ???Cardiovascular:? Chest pain at restdenies.? Chest pain with exertiondenies.? Claudicationdenies .? Dizzinessdenies.? Fluid accumulation in the legsdenies.? Irregular heartbeat denies.? Palpitationsdenies. ???Gastrointestinal:? Abdominal paindenies.? Constipationdenies.? Diarrheadenies.? Difficulty swallowingdenies.? Heartburndenies.? Nauseadenies.? Rectal bleedingdenies. ???Hematology:? Easy bruisingdenies.? Prolonged bleedingdenies. ???Genitourinary:? Frequent urinationadmits.? Urgencydenies.? Incontinencedenies.? Erectile Dysfunctiondenies. ???Musculoskeletal:? Neck paindenies.? Back paindenies.? Muscle achesdenies.? Painful jointsdenies.? Sciaticadenies.? Weaknessdenies. ???Podiatric:? Difficulty walkingdenies.? Foot numbnessdenies. ???Neurologic:? Difficulty swallowingdenies.? Balance difficultydenies.? Coordinationnormal.? Difficulty speakingdenies.? Dizzinessdenies.? Faintingdenies.? Gait abnormality admits,?shuffling.? Headachedenies.? Loss of strengthdenies.? Loss of use of extremitydenies.? Low back paindenies.? Memory lossadmits.? Seizuresdenies.? Ticsdenies.? Tingling/Numbnessdenies.? Transient loss of visiondenies.? Tremor mild intermittent right hand tremor. ???Psychiatric:? Anxietydenies.? Auditory/visual hallucinationsdenies.? Delusionsdenies.? Depressed mooddenies.? Stressorsdenies.? Substance abusedenies.? Suicidal thoughtsdenies. Physical Exam Neuro Other: Neurological: Abnormal neurological findings:??mild reduction in facial expression with reduced blink frequency.? Very slightly forward stooped posture.? Very mild 4-6 Hz low to medium amplitude resting tremor, mostly affecting the right thumb and index finger and slightly at the wrist.? Minimal increase in tone in the right upper extremity.? Very slight decrease in arm swing on walking.? He did not exhibit a shuffling gait today in the office..?Mental Status:??alert and oriented X 3,?Normal attention, orientation, memory and affect.?Cranial Nerves :??Pupils are equal, round and reactive to light. Fundoscopy shows normal disc bilaterally. External occular muscles are intact. Visual schwartz are full, no ptosis. Face is symmetrical, no facial weakness or droop. Facial sensations are normal. Tongue protrudes in midline. Palate elevates symmetrically. Shoulder shrugging is normal..?Motor Examination:??as above, otherwise normal muscle tone, bulk and strength,?No atrophy or fasciculations,?No drift of the extended upper extremities,?Deep tendon reflexes are 2+?,?Plantars are flexor?.?Motor Strength:?Proximal Muscles (out of 5):5Distal Muscles (out of 5):5Neck Flexors (out of 5):5Neck Extensors (out of 5):5Deltoid (out of 5):5Biceps (out of 5):5 Triceps (out of 5):5Serratus Anterior (out of 5):5Wrist Extensors (out of 5):5 APB (out of 5):5Finger Spread (out of 5):5Ileopsoas (out of 5):5Quadriceps (out of 5):5Hamstrings (out of 5):5Tibialis Anterior (out of 5):5Peronei (out of 5):5 EDB (out of 5):5Gastrocnemius (out of 5):5Straight Leg Raising:??90 degrees.?Sensory Exam:??Normal light touch, temperature, pinprick, vibration and joint-position sensations?,?Rhomberg sign is absent.?Coordination:??no ataxia,?no titubation,?[id number], [id number] test and rapid alternating movements were normal.?Gait Exam:??Within normal limits.?Cerebellar Signs:??[id number] and [id number] is normal,?no dysdiadochokinesia?.?Extrapyramidal System:??tremor as described above. No rigidity with slightly reduced?facial expressions,?No bradykinesia, no bradyphrenia. Normal arm swing and posture. No propulsion or retropulsion.?Speech:??Normal,?no dysphasia or dysarthria..? Mini Mental Status Exam: Level of Consciousness:??Alert.?Orientation:??Knows correct year, month, date, day and season,?Knows correct city, county and state. Knows correct location and floor.?Registration:??Able to register 3 objects.?Attention:??Serial 7's performed accurately.?Recall:??Able to recall 3 out of 3 objects.?Language:??Normal spontaneous speech, fluency, repetition,naming, comprehension, reading and writing.?Total Score:??30/30.? General Examination: GENERAL APPEARANCE:??normal,?in no acute distress.?HEAD:??normocephalic,?atraumatic.?EYES:??sclera non- icteric,?conjunctiva clear.?EARS:??auditory canal clear,?tympanic membrane intac t, clear.?NOSE:??no lesions.?ORAL CAVITY:??gums normal,?mucosa moist,?no lesions.?THROAT:??clear.?NECK/THYROID:??no cervical lymphadenopathy,?thyroid normal,?neck supple, full range of motion,?no carotid bruit.?SKIN:??no rashes,?no significant birthmarks.?HEART:??S1, S2 normal,?no murmurs.?LUNGS:??clear anteriorly and posteriorly.?CHEST:??no gross rib deformity,?clear to auscultation.?BACK:??normal exam of spine.?EXTREMITIES:??no edema.?PERIPHERAL PULSES:??normal.?PSYCH:??alert, oriented,?cognitive function intact,?cooperative with exam.? Assessment & Plan Assessment & Plan (1) Parkinson disease: Comment: He has very early, mildly symptomatic Parkinson's disease. This diagnosis and potential treatments were discussed with the patient and his daughter. Both the patient and I are of the opinion that he does not need symptomatic treatment for his Parkinson's disease at this time as he has no functional impairment, and is not very motivated to take any medications. They also understand that the disease is progressive and a time may come in the future when he chooses to start medication. No progression over last 6 months Code(s): G20 - Parkinson's disease Category: Medical (2) Bilateral carotid artery stenosis: Comment: 06/14/2017 - right carotid endarterectomy Code(s): I65.23 - Occlusion and stenosis of bilateral carotid arteries Category: Medical Plan Exercise and walking. Continue current meds. Coding Level of Care Code Est Pt Level 4 (18548) Diagnoses Parkinson disease G20 Bilateral carotid artery stenosis I65.23
--- OUTSIDE RECORDS SUMMARY | 2025-06-04 13:06 | XMS_ITS | Clinical Summary ---
Author Organization [address] Building Address [address] [place] [phone] Phone Care Team Providers Care Scenic Artist Name Role Phone Rodolfo Dumont MD Primary Care Provider [phone] Allergies No known active allergies Medications aspirin 81 mg EC tablet Take 1 tablet (81 mg total) by mouth 1 (one) time each day. Active cholecalciferol (VITAMIN D-3) 25 mcg (1,000 unit) capsule Take 1 capsule (1,000 Units total) by mouth 1 (one) time each day. 9 Active omega-3 acid ethyl esters (LOVAZA) 1 gram capsule Take 1 capsule (1 g total) by mouth 1 (one) time each day. 9 Active rosuvastatin (CRESTOR) 40 mg tabletIndication s:Hyperlipidemia , unspecified Take 1 tablet (40 mg total) by mouth 1 (one) time each day. 90 tablet 5 Active acetaminophen (TYLENOL 8 HOUR) 650 mg 8 hr tablet Take 1 tablet (650 mg total) by mouth every 8 (eight) hours if needed for moderate pain. 90 tablet 5 Active metoprolol succinate (TOPROL-XL) 25 mg 24 hr tablet TAKE 1 TABLET BY MOUTH 1 TIME EACH DAY. 90 tablet 5 Active cyanocobalamin (Vitamin B-12) 1,000 mcg tablet Take 1 tablet (1,000 mcg total) by mouth 1 (one) time each day. 30 each 11 04/18/20 26 Active Active Problems Problem Noted Date Diagnosed Date Parkinson's disease without dyskinesia ([facility] V24, [facility] V28) 04/18/2025 Anemia 07/18/2024 Arteriosclerosis of carotid artery 07/18/2024 Enlarged prostate 07/18/2024 Hyperlipidemia 07/18/2024 Loss of hearing 07/18/2024 Primary hypertension 07/18/2024 Vitamin B12 deficiency (non anemic) 07/18/2024 Impaired glucose tolerance 11/10/2017 Stage III chronic kidney disease ([facility] V24, [facility] V28) 11/10/2017 Carotid atherosclerosis 07/04/2017 Encounters Date Type Department Care Team Description 05/31/2025 9:30 AM EDT Lab Draw Station - [address] [phone] B12 deficiency; Anemia, unspecified type 05/31/2025 9:00 AM EDT Office Visit [facility] Hematology Oncology [address] [place] [phone] Hayder Stephens MD B12 deficiency (Primary Dx); Anemia, unspecified type 04/18/2025 9:00 AM EDT Office Visit Internal Medicine - [address] [phone] Rodolfo Dumont MD Primary hypertension (Primary Dx); Prediabetes; Vitamin B12 deficiency (non anemic); Parkinson's disease without dyskinesia, unspecified whether manifestations fluctuate ([facility] V24, [facility] V28) 03/28/2025 4:15 PM EDT Office Visit Nephrology [address] [phone] Walter Bui MD Chronic kidney disease, unspecified CKD stage (Primary Dx); Essential hypertension; Enlarged prostate from Last 3 Months Immunizations Immunization Administration Dates Next Due Influenza Quadravalent, MDCK , 0.5ml, preservative free (Flucelvax) 6mo and older 06/29/2012 Influenza trivalent, 0.5mL, preservative free (Fluarix; FluLaval; Fluzone) ages 6mo and older (Afluria) 3 years and older 05/08/2015 Pneumococcal conjugate 13 va lent (Prevnar 13, PCV13) 2mo and older 04/02/2015 Pneumococcal polysaccharide 23 valent (Pneumovax 23) 2yo and older 01/31/2019 Surgical History Surgery Date Site/Laterality Comments OTHER SURGICAL HISTORY Right PROCEDURE: ---- OTHER ----; COMMENT: carotid endarterectomy CATARACT EXTRACTION PROCEDURE: HISTORICAL CATARACT REMOVAL Medical History Medical History Date Comments Anemia DX:Anemia Arteriosclerosis of carotid artery DX:Arteriosclerosis of carotid artery Enlarged prostate DX:Enlarged pr ostate Loss of hearing DX:Loss of heari ng Hyperlipidemia DX:Hyperlipidemi a Primary hypertension DX:Primary hypertension Vitamin B12 deficiency (non anemic) DX:Vitamin B12 deficiency (non anemic) Family History Medical History Relation Name Comments No Known Problems Brother 1 step Diabetes Brother 2 Other: carotid atherosclerosis Sister 1 step Breast cancer Sister 2 Other: Other Son hx of seizures Relation Name Status Comments Brother 1 Alive Brother 2 Daughter Alive Father Maternal Grandfather Maternal Grandmother Mother Paternal Grandfather Paternal Grandmother Sister 1 Alive Sister 2 Son Alive Social History Tobacco Use Types Packs/Day Years Used Date Smoking Tobacco: Never Smokeless Tobacco: Never Tobacco Cessation:Counseling Given: Not Answered Alcohol Use Standard Drinks/Week Comments Not Currently 0 (1 standard drink = 0.6 oz pur e alcohol) Sex and Gender Information Value Date Recorded Sex Assigned at Not on file Legal Sex Male 4:58 PM EST Gender Identity Not on file Sexual Orientation Not on file Obstetrics History Last Filed Vital Signs Vital Sign Reading [...] Mass Index 24.54 05/31/2025 8:56 AM EDT Plan of Treatment Upcoming Encounters Date Type Department Care Team (Late st Contact Info) Description 06/18/2025 11:30 AM EST Office Visit [facility] Hematology Oncology [address] [place] [phone] Hayder Stephens MD [address] [place] [address] 10/17/2025 9:15 AM EDT Office Visit Internal Medicine - [address] [phone] Rodolfo Dumont MD [address] [place] [phone] 04/17/2026 1:00 PM EDT Office Visit Nephrology - [place] [address] [place] [phone] Walter Bui MD [address] [phone] Health Maintenance Due Date Last Done Comments Zoster Vaccines (1 of 2) 1954 RSV Immunization Adult Patients (1 - 1-dose 75+ series) 2010 Falls Risk Assessment 07/10/2022 Medicare Annual Wellness Visit 07/10/2022 Social Influencers of Health Screening 07/10/2022 Depression Screening 08/01/2024 COVID-19 Vaccine ( season) 2025 07/22/2021, 10/18/2020, 09/20/2020 Influenza Vaccine (#1) 2025 05/08/2015, 2011 Hypertension/CHF/CAD Annual BMP Blood Test 04/18/2026 04/18/2025, 10/16/2024, 07/17/2024, Additional history exists Cholesterol Screening (Lipid Panel) 04/18/2030 04/18/2025, 10/16/2024, 04/19/2024, Additional history exists DTaP,Tdap,and Td Vaccines (2 - Td or Tdap) 12/26/2033 12/27/2023 Pneumococcal Vaccine: 50+ Years Completed 01/31/2019, 04/02/2015 HIB Vaccines Aged Out No longer eligi ble based on patient's age to complete this topic HPV Vaccines Aged Out No longer eligi ble based on patient's age to complete this topic Hepatitis A Vaccines Aged Out No long er eligible based on patient's age to complete this topic Hepatitis B Vaccines Aged Out No long er eligible based on patient's age to complete this topic IPV Vaccines Aged Out No longer eligi ble based on patient's age to complete this topic MMR Vaccines Aged Out No longer eligi ble based on patient's age to complete this topic Meningococcal ACWY Vaccine Aged Out N o longer eligible based on patient's age to complete this topic Meningococcal B Vaccine Aged Out No l onger eligible based on patient's age to complete this topic RSV Immunization Patients Under 20 months Aged Out No longer eligible based on patient's age to complete this topic Varicella Vaccines Aged Out No longer eligible based on patient's age to complete this topic Procedures Procedure Name Priority Date/Time Associated Diagnosis Comments CBC WITH AUTO DIFFERENTIAL Routine 05/31/2025 9:19 [...] AM EDT B12 deficiency Anemia, unspecified type VITAMIN B12 AND FOLATE Routine 9:19 AM EDT B12 deficiency Anemia, unspecified type CBC AND DIFFERENTIAL Routine 05/31/2025 9:19 AM EDT B12 deficiency Anemia, unspecified type COMPREHENSIVE METABOLIC PANEL Routine 04/18/2025 9:36 AM EDT Primary hypertension Prediabetes HEMOGLOBIN A1C Routine 04/18/2025 9:36 AM EDT Primary hypertension Prediabetes COMPLETE BLOOD COUNT Routine 04/18/2025 9:36 AM EDT Vitamin B12 deficiency (non anemic) VITAMIN B12 Routine 04/18/2025 9:36 AM EDT Vitamin B12 deficiency (non anemic) LIPID PANEL WITH REFLEX TO DIRECT LDL Routine 04/18/2025 9:36 AM EDT Primary hypertension Prediabetes from Last 3 Months Results * (ABNORMAL) Vitamin B12 and folate (05/31/2025 9:19 AM EDT) Pathologist [facility] [place] Vitamin B-12 500 250 - 900 pcg/mL LAB CHEMISTRY METHOD 05/31/2025 2:45 PM EDT [facility] Folate >20.0(H) 2.8 - 17.0 ng/ml LAB CHEMISTRY METHOD 05/31/2025 2:45 PM EDT [facility] Blood Venous blood specimen / Unknown Venipuncture / Unknown 05/31/2025 9:19 AM EDT 05/31/2025 1:14 PM EDT us Hayder Stephens MD LAB BLOOD ORDERABLES Final R esult [facility] [address] [place] [address], [place] [phone] * (ABNORMAL) CBC auto differential (05/31/2025 9:19 AM EDT) Pathologist [facility] [place] WBC 6.2 4.8 - 10.8 K/mcL LAB HEMETOLOGY METHOD 05/31/2025 1:41 PM [facility] RBC 4.10(L) 4.50 - 5.50 M/mcL LAB HEMETOLOGY METHOD 05/31/2025 1:41 PM [facility] Hemoglobin 11.1(L) 13.5 - 17.5 g/dL LAB HEMETOLOGY METHOD 05/31/2025 1:41 PM [facility] Hematocrit 35.4(L) 42.0 - 54.0 % LAB HEMETOLOGY METHOD 05/31/2025 1:41 PM [facility] MCV 87.4 79.0 - 98.0 FL LAB HEMETOLOGY METHOD 05/31/2025 1:41 PM [facility] MCH 27.4 27.0 - 32.0 pcg LAB HEMETOLOGY METHOD 05/31/2025 1:41 PM [facility] MCHC 31.4(L) 32.0 - 37.0 g/dL LAB HEMETOLOGY METHOD 05/31/2025 1:41 PM [facility] RDW 15.2(H) 11.0 - 15.0 % LAB HEMETOLOGY METHOD 05/31/2025 1:41 PM [facility] Platelets 130 130 - 400 K/[facility] LAB HEMETOLOGY METHOD 05/31/2025 1:41 PM [facility] MPV 10.5 7.0 - 11.0 FL LAB HEMETOLOGY METHOD 05/31/2025 1:41 PM [facility] NRBC 0.0 <1.0 % LAB HEMETOLOGY METHOD 05/31/2025 1:41 PM [facility] NRBC Absolute 0.00 <0.10 K/[facility] LAB HEMETOLOGY METHOD 05/31/2025 1:41 PM [facility] Neutrophils Relative 50.5 % LAB HEMETOLOGY METHOD 05/31/2025 1:41 PM [facility] Lymphocytes Relative 30.9 % LAB HEMETOLOGY METHOD 05/31/2025 1:41 PM [facility] Monocytes Relative 15.8 % LAB HEMETOLOGY METHOD 05/31/2025 1:41 PM [facility] Eosinophils Relative 2.4 % LAB HEMETOLOGY METHOD 05/31/2025 1:41 PM [facility] Basophils Relative 0.2 % LAB HEMETOLOGY METHOD 05/31/2025 1:41 PM [facility] Immature Granulocytes Relative 0.2 % LAB HEMETOLOGY METHOD 05/31/2025 1:41 PM [facility] Neutrophils Absolute 3.11 1.50 - 7.00 K/mcL LAB HEMETOLOGY METHOD 05/31/2025 1:41 PM [facility] Lymphocytes Absolute 1.90 1.00 - 5.00 K/mcL LAB HEMETOLOGY METHOD 05/31/2025 1:41 PM [facility] Monocytes Absolute 0.97 0.20 - 1.00 K/mcL LAB HEMETOLOGY METHOD 05/31/2025 1:41 PM [facility] Eosinophils Absolute 0.15 0.00 - 0.50 K/mcL LAB HEMETOLOGY METHOD 05/31/2025 1:41 PM [facility] Basophils Absolute 0.01 0.00 - 0.20 K/mcL LAB HEMETOLOGY METHOD 05/31/2025 1:41 PM [facility] Immature Granulocytes Absolute 0.01 0.00 - 0.03 K/mcL LAB HEMETOLOGY METHOD 05/31/2025 1:41 PM [facility] Blood Venous blood specimen / Unknown Venipuncture / Unknown 05/31/2025 9:19 AM EDT 05/31/2025 1:15 PM EDT Hayder Stephens MD LAB BLOOD ORDERABLES Final R esult [facility] ([facility]) [facility] [address] [place] [address], [place] [phone] * Erythropoietin (05/31/2025 9:19 AM EDT) Erythropoietin 4.5 2.6 - 18.5 mIU/mL 06/03/2025 8:44 PM EST [facility] Comment: Test performed at [facility], [address], [place] [address] Melanie Vargas MD, PhD - Fuel Pilot Engineer Blood Venous blood specimen / Unknown Venipuncture / Unknown 05/31/2025 9:19 AM EDT 05/31/2025 1:14 PM EDT Hayder Stephens MD LAB BLOOD ORDERABLES Final R esult [facility] [address] [place] [address] * Intrinsic factor blocking antibody (05/31/2025 9:19 [...] within the past week. Test performed at [facility], [address], [place] [address] Melanie Vargas MD, PhD - Fuel Pilot Engineer Blood Venous blood specimen / Unknown Venipuncture / Unknown 05/31/2025 9:19 AM EDT 05/31/2025 1:14 PM EDT us Hayder Stephens MD LAB BLOOD ORDERABLES Final R esult [facility] [address] [place] [address] * (ABNORMAL) Methylmalonic acid, serum (05/31/2025 9:19 AM EDT) Methylmalonic Acid 0.41(H) <0.40 umol/L 06/04/2025 8:11 AM EST [facility] Comment: If applicable, any drug confirmation testing reported here was developed and the performance characteristics determined by [facility]. This confirmation testing has not been cleared or approved by the FDA. The laboratory is regulated under CLIA as qualified to perform high-complexity testing. This test is used for patient testing purposes. It should not be regarded as investigational or for research. Test performed at [facility], [address] , [place] [address] Melanie Vargas MD, PhD - Fuel Pilot Engineer Blood Venous blood specimen / Unknown Venipuncture / Unknown 05/31/2025 9:19 AM EDT 05/31/2025 1:14 PM EDT us Hayder Stephens MD LAB BLOOD ORDERABLES Final R esult Performing Organization Address City/[facility]/ZIP Co de Phone Number [facility] [address] [place] [address] * (ABNORMAL) Iron and TIBC (05/31/2025 9:19 AM EDT) Iron 34(L) 50 - 160 mcg/dL LAB CHEMISTRY METHOD 05/31/2025 2:45 PM EDT [facility] TIBC 274 250 - 450 mcg/dL LAB CHEMISTRY METHOD 05/31/2025 2:45 PM EDT [facility] Iron Saturation 12(L) 20 - 50 % LAB CHEMISTRY METHOD 05/31/2025 2:45 PM EDT [facility] Blood Venous blood specimen / Unknown Venipuncture / Unknown 05/31/2025 9:19 AM EDT 05/31/2025 1:14 PM EDT us Haydre Stephens MD LAB BLOOD ORDERABLES Final R esult Performing Organization Address City/[facility]/ZIP Co de Phone Number [facility] [address] [place] [address], [place] [phone] * Reticulocyte count (05/31/2025 9:19 AM EDT) Retic Ct Abs 0.040 0.030 - 0.090 M/mcL LAB HEMETOLOGY METHOD 05/31/2025 1:41 PM EDT [facility] Retic Ct Pct 0.9 0.7 - 1.7 % LAB HEMETOLOGY METHOD 05/31/2025 1:41 PM EDT [facility] Immature Retic Fract 8.8 2.3 - 15.9 % LAB HEMETOLOGY METHOD 05/31/2025 1:41 PM EDT [facility] Reticulocyte Hemoglobin 30.9 >29.0 pcg LAB HEMETOLOGY METHOD 05/31/2025 1:41 PM EDT [facility] Blood Venous blood specimen / Unknown Venipuncture / Unknown 05/31/2025 9:19 AM EDT 05/31/2025 1:15 PM EDT Hayder Stephens MD LAB BLOOD ORDERABLES Final R esult [facility] [address] [place] [address], [place] [phone] * Ferritin (05/31/2025 9:19 AM EDT) Ferritin 146 26 - 388 ng/mL LAB CHEMISTRY METHOD 05/31/2025 2:45 PM EDT [facility] Blood Venous blood specimen / Unknown Venipuncture / Unknown 05/31/2025 9:19 AM EDT 05/31/2025 1:14 PM EDT Hayder Stephens MD LAB BLOOD ORDERABLES Final R esult [facility] [address] [place] [address], [place] [phone] * (ABNORMAL) Lipid panel with reflex to direct LDL (04/18/2025 9:36 AM EDT) Cholesterol 98 0 - 200 mg/dL LAB CHEMISTRY METHOD 04/18/2025 12:32 PM EDT [facility] Triglycerides 161(H) 0 - 150 mg/dL LAB CHEMISTRY METHOD 04/18/2025 12:32 PM EDT [facility] HDL 41 >=40 mg/dL LAB CHEMISTRY METHOD 04/18/2025 12:32 PM EDT [facility] LDL Calculated 25 0 - 100 mg/dL LAB CHEMISTRY METHOD 04/18/2025 12:32 PM EDT [facility] Comment:Estimated LDL Calcul ated using equation: Total cholesterol - HDL cholesterol - (Triglycerides/5) VLDL Cholesterol [place] 32.2 mg/dL LAB CHEMISTRY METHOD 04/18/2025 12:32 PM EDT [facility] Non HDL Chol. (LDL+VLDL) 57 <145 mg/dL LAB CHEMISTRY METHOD 04/18/2025 12:32 PM EDT [facility] Chol/HDL Ratio 2.4 0.0 - 4.4 LAB CHEMISTRY METHOD 04/18/2025 12:32 PM [facility] Blood Venous blood specimen / Unknown Venipuncture / Unknown 04/18/2025 9:36 AM EDT 04/18/2025 9:36 AM EDT us Rodolfo Dumont MD LAB BLOOD ORDERABLES Final Res ult [facility] [address] [place] [address], * (ABNORMAL) Complete blood count (04/18/2025 9:36 AM EDT) WBC 6.7 4.8 - 10.8 K/mcL LAB HEMETOLOGY METHOD 04/18/2025 12:10 PM EDT [facility] RBC 4.10(L) 4.50 - 5.50 M/mcL LAB HEMETOLOGY METHOD 04/18/2025 12:10 PM EDT [facility] Hemoglobin 11.1(L) 13.5 - 17.5 g/dL LAB HEMETOLOGY METHOD 04/18/2025 12:10 PM EDT [facility] Hematocrit 34.6(L) 42.0 - 54.0 % LAB HEMETOLOGY METHOD 04/18/2025 12:10 PM EDT [facility] MCV 84.8 79.0 - 98.0 FL LAB HEMETOLOGY METHOD 04/18/2025 12:10 PM EDT [facility] MCH 27.2 27.0 - 32.0 pcg LAB HEMETOLOGY METHOD 04/18/2025 12:10 PM EDT [facility] MCHC 32.1 32.0 - 37.0 g/dL LAB HEMETOLOGY METHOD 04/18/2025 12:10 PM EDT [facility] RDW 14.6 11.0 - 15.0 % LAB HEMETOLOGY METHOD 04/18/2025 12:10 PM EDT [facility] Platelets 156 130 - 400 K/mcL LAB HEMETOLOGY METHOD 04/18/2025 12:10 PM EDT [facility] MPV 10.9 7.0 - 11.0 FL LAB HEMETOLOGY METHOD 04/18/2025 12:10 PM EDT [facility] NRBC 0.0 <1.0 % LAB HEMETOLOGY METHOD 04/18/2025 12:10 PM EDT [facility] NRBC Absolute 0.00 <0.10 K/mcL LAB HEMETOLOGY METHOD 04/18/2025 12:10 PM EDT [facility] Blood Venous blood specimen / Unknown Venipuncture / Unknown 04/18/2025 9:36 AM EDT 04/18/2025 9:36 AM EDT us Rodolfo Dumont MD LAB BLOOD ORDERABLES Final Res ult Performing Organization Address [facility]/ZIP Co de Phone Number [facility] [address] [place] [address], [place] [phone] * Hemoglobin A1c (04/18/2025 9:36 AM EDT) Pathologist [facility] [place] Hemoglobin A1C 6.4 <6.5 % LAB CHEMISTRY METHOD 04/18/2025 9:55 PM EDT [facility] Mean Bld Glu Estim. 137 mg/dL LAB CHEMISTRY METHOD 04/18/2025 9:55 PM EDT [facility] Blood Venous blood specimen / Unknown Venipuncture / Unknown 04/18/2025 9:36 AM EDT 04/18/2025 9:36 AM EDT us Rodolfo Dumont MD LAB BLOOD ORDERABLES Final Res ult [facility] [address] [place] [address], [place] [phone] * (ABNORMAL) Vitamin B12 (04/18/2025 9:36 AM EDT) Vitamin B-12 169(L) 250 - 900 pcg/mL LAB CHEMISTRY METHOD 04/18/2025 12:58 PM EDT [facility] Blood Venous blood specimen / Unknown Venipuncture / Unknown 04/18/2025 9:36 AM EDT 04/18/2025 9:36 AM EDT us Rodolfo Dumont MD LAB BLOOD ORDERABLES Final Res ult [facility] [address] [place] [address], [place] [phone] * (ABNORMAL) Comprehensive metabolic panel (04/18/2025 9:36 AM EDT) Sodium 138 133 - 145 mmol/L LAB CHEMISTRY METHOD 04/18/2025 12:32 PM [facility] Potassium 4.1 3.5 - 5.5 mmol/L LAB CHEMISTRY METHOD 04/18/2025 12:32 PM [facility] Chloride 106 96 - 110 mmol/L LAB CHEMISTRY METHOD 04/18/2025 12:32 PM [facility] CO2 27 21 - 32 mmol/L LAB CHEMISTRY METHOD 04/18/2025 12:32 PM [facility] Anion Gap 5 3 - 11 LAB CHEMISTRY METHOD 04/18/2025 12:32 PM [facility] Glucose 100 70 - 100 mg/dL LAB CHEMISTRY METHOD 04/18/2025 12:32 PM [facility] BUN 28(H) 5 - 25 mg/dL LAB CHEMISTRY METHOD 04/18/2025 12:32 PM [facility] Creatinine 1.47(H) 0.70 - 1.30 mg/dL LAB CHEMISTRY METHOD 04/18/2025 12:32 PM [facility] eGFR 45(L) >=60 mL/min/1. 73m2 LAB CHEMISTRY METHOD 04/18/2025 12:32 PM [facility] Comment:Calculation based on the Chronic Kidney Disease Epidemiology Collaboration (CKD-EPI) equation refit without adjustment for race. BUN/Creatinine Ratio 19.0 LAB CHEMISTRY METHOD 04/18/2025 12:32 PM T [facility] Calcium 8.9 8.5 - 10.5 mg/dL LAB CHEMISTRY METHOD 04/18/2025 12:32 PM [facility] AST (SGOT) 27 10 - 42 unit/L LAB CHEMISTRY METHOD 04/18/2025 12:32 PM [facility] ALT (SGPT) 20 10 - 60 unit/L LAB CHEMISTRY METHOD 04/18/2025 12:32 PM [facility] Alkaline Phosphatase 112 42 - 121 unit/L LAB CHEMISTRY METHOD 04/18/2025 12:32 PM [facility] Total Protein 6.8 6.0 - 8.0 g/dL LAB CHEMISTRY METHOD 04/18/2025 12:32 PM [facility] Albumin 3.7 3.2 - 5.0 g/dL LAB CHEMISTRY METHOD 04/18/2025 12:32 PM [facility] Total Bilirubin 0.4 0.0 - 1.4 mg/dL LAB CHEMISTRY METHOD 04/18/2025 12:32 PM [facility] Blood Venous blood specimen / Unknown Venipuncture / Unknown 04/18/2025 9:36 AM EDT 04/18/2025 9:36 AM EDT us Rodolfo Dumont MD LAB BLOOD ORDERABLES Final Res ult [facility] [address] [place] [address], from Last 3 Months Insurance [employer] Care Teams Scenic Artist Relationship Specialty Start Date End Date Rodolfo Dumont MD [address] [place] [phone] PCP - General Internal Medicine 06/26/19
--- OUTSIDE RECORDS SUMMARY | 2025-06-04 13:06 | XMS_ITS ---
Author Name [facility] Organization Unknown Care Team Organization Name Specialty Phone Email Start Date End Da te [facility] 03/20/2025 [facility] Organization Rodolfo Dumont Primary Care 06/08/2022 03/19/20 24
== END 2025-06-04 11:26 | disposition home or self-care (01) ==
LOC: HO.HSM 10:52
PROVIDERS: PCP Internal Medicine; Referring Provider Internal Medicine; Visit Provider Psychiatry & Neurology Neurology
DX: G20.C Parkinsonism, unspecified (principal); I65.23 Occlusion and stenosis of bilateral carotid arteries
CPT/HCPCS: 99214

== ENCOUNTER → 2025-06-04 10:52 | Outpatient (BNVA) | payer MEDICARE, SELFPAY | PROVIDERS: PCP Internal Medicine; Referring Provider Internal Medicine; Visit Provider Psychiatry & Neurology Neurology | DX: G20.C Parkinsonism, unspecified (principal); I65.23 Occlusion and stenosis of bilateral carotid arteries | CPT/HCPCS: 99212 ==